=== PATIENT | male | born 1965 | race Caucasian/White ===

== ENCOUNTER 2019-12-07 16:20 | Inpatient (IN) | payer OTHER ==
[~2019-12-07] VITALS: Ht 180.3 cm; Wt 96.8 kg
[~2019-12-07 16:20] MED LIST: IBUPROFEN 200200 M1 PO; NORCO 5-325 TA1 EACH PO; PENICILLIN VK500 MG PO; TYLENOL325 MG PO
[2019-12-07 16:21] VITALS: BP 131/91
[2019-12-07 16:59] LABS: URINE BILIRUBIN 3+ (Negative); URINE BLOOD NEGATIVE (Negative); URINE CLARITY CLEAR; URINE COLOR OTHER; URINE GLUCOSE-RANDOM* TRACE (Negative); URINE KETONES TRACE (Negative); URINE LEUKOCYTES-REFLEX TRACE (Negative); URINE PROTEIN (DIPSTICK) 1+ (Negative); URINE SPECIFIC GRAVITY >= 1.030 (1.005-1.035)
[2019-12-07 17:01] LABS: AMP/METHAMP Negative (Negative); BARBITURATES Negative (Negative); BENZODIAZEPINES Negative (Negative); COCAINE Negative (Negative); METHADONE Negative (Negative); OPIATES Negative (Negative); PCP Negative (Negative)
[2019-12-07 17:06] LABS: URINE NITRITE-REFLEX POSITIVE (Negative)
[2019-12-07 17:07] LABS: ICTOTEST (BILI CONFIRMATORY) Positive (Negative)
[2019-12-07 17:09] LABS: MUCUS 4-6 Moderate strn/LPF (None Seen); SQUAMOUS 0-3 Few /LPF (0-3)
[2019-12-07 17:10] LABS: BACTERIA-REFLEX 1-9 Few /HPF (None Seen); CRYSTALS None Seen /LPF (None Seen); URINE RBC 0-2 Rare /HPF (0-2); URINE WBC-REFLEX 0-5 Rare /HPF (0-5)
[2019-12-07 17:11] LABS: HYALINE CASTS 0-3 Few /LPF (None Seen)
[2019-12-07 17:20] LABS: HEMATOCRIT 36.9 % (42.0-52.0); HEMOGLOBIN 12.7 gm/dL (14.0-18.0); MCH 29.7 pg (26.0-34.0); MCHC 34.3 g/dL (28.0-37.0); MCV 86.5 fL (80.0-100.0); PLATELET COUNT 311 thou/uL (150-400); RBC 4.27 mil/uL (4.50-6.00); RDW 16.1 % (10.5-14.5); WBC 5.8 thou/uL (4.0-11.0)
[2019-12-07 17:26] LABS: CALCIUM 8.8 mg/dL (8.5-10.1); CREATININE 0.9 mg/dL (0.7-1.3); POTASSIUM 3.3 mmol/L (3.5-5.1)
[2019-12-07 17:27] LABS: INR 1.6
[2019-12-07 17:32] LABS: ALBUMIN 3.1 g/dL (3.4-5.0); TOTAL PROTEIN 6.8 g/dL (6.4-8.2)
[2019-12-07 18:40] LABS: ABSOLUTE NEUTROPHILS 4.6 thou/uL (1.4-8.2); ANISOCYTOSIS 1+
[2019-12-07 20:06] VITALS: BP 129/82
--- NOTE | 2019-12-07 20:07 | NUR ---
FIRST ATTEMPT AT REPORT CALLED. STATES NURSE IS IN A ROOM SHE WILL CALL BACK IN A FEW MINS
--- NOTE | 2019-12-07 20:23 | NUR ---
SECOND ATTEMPT AT REPORT MADE. FLOOR NURSE TO CALL BACK.
[2019-12-07 20:48] VITALS: BP 129/82
[2019-12-07 21:26] VITALS: BP 132/87
[2019-12-07] MEDS ORDERED: BENADRYL ANTI-I85 GM TOP (22:14)
[2019-12-07 22:26] LABS: CHOLESTEROL 192 mg/dL (<200); HDL CHOLESTEROL 5 mg/dL (>40); LDL CHOLESTEROL 124 mg/dL (<100); TC:HDL 38.4 Ratio (Not establshd); TRIGLYCERIDE 316 mg/dL (<150); VLDL 63 mg/dL (<40)
[2019-12-07 22:34] LABS: SERUM ASSESSMENT Clear
--- NOTE | 2019-12-08 05:09 | NUR ---
PT ARRIVED TO UNIT APPROXIMATELY AT 2100. PT ORIENTED TO ROOM, ADMISSION PACKET PROVIDED. PT AOX4. PT DENIES PAIN AND SOB. PT REPORTS DIFFICULTY SLEEPING. ONCALL PEDIATRIC GENETICIST NOTIFIED, EMAR UPDATED, MELATONIN GIVEN. PT ASSESSED WITH PRURITIS, RASH LIKE PATTERNS THROUGHOUT BODY MOSTLY SEEN ON BLE. PT REPORTS USING BARRIER CREAM AND BENADRYL TO RELIEVE ITCHING. PT RECEIVING PRN PO BENADRYL Q6HR, BARRIER CREAM PROVIDED. PT NOTED TO HAVE BROWN, KIRSTEN URINE. PT AMBULATES WITH STANDBY ASSIST, GAIT STEADY, URINAL PROVIDED. PT TOLERATING PO INTAKE OF FLUIDS AND HEART HEALTHY DIET.PT DENIES N/V. ENCOURAGED PT TO NOTIFY STAFF FOR ALL NEEDS. CALL LIGHT WITHIN REACH, BED IN LOWEST POSITION, FREQUENT MONITORING CONTINUES.
[2019-12-08 05:10] VITALS: BP 130/82
[2019-12-08 05:24] LABS: ALBUMIN 2.8 g/dL (3.4-5.0); CALCIUM 8.4 mg/dL (8.5-10.1); CREATININE 0.6 mg/dL (0.7-1.3); MAGNESIUM 1.8 mg/dL (1.8-2.4); POTASSIUM 3.6 mmol/L (3.5-5.1); TOTAL PROTEIN 6.3 g/dL (6.4-8.2)
--- NOTE | 2019-12-08 08:25 | EKG ---
[facility] [place] [address] [place] [address] ELECTROCARDIOGRAM REPORT Name: MAINOR CASTILLO Room #: 441- ADM IN M.R.#: [id number] Admission: 12/07/19 Attend Phys: Hugo Carrera MD Discharge: Date of : 67 Report #: [id number] THIS REPORT FOR: cc: FAM - No family physician/PCP FAM - No family physician/PCP Gary Richmond MD [facility] THIS REPORT FOR: //name// [facility] ED Test Date: 2019-12-07 Test Time: 17:08:50 Pat Name: MAINOR CASTILLO Department: Room: [facility] Gender: M Opener Verifier Packer Customs: esheets : 1965 Requested By: Jennyfer Coyle Order Number: [id number] MD: Gary Richmond Measurements Intervals [place] Rate: 65 P: 36 UT: 198 QRS: 5 QRSD: 101 T: 23 QT: 380 QTc: 396 Interpretive Statements Sinus rhythm Normal tracing No previous ECG available for comparison Electronically Signed On 12-08-2019 8:25:33 CDT by Gary Richmond [email or web address] <ELECTRONICALLY SIGNED> By: Gary Richmond MD, FACC 12/08/19 0825 1708 1708 Gary Richmond MD, [facility] /EPI
[2019-12-08 08:36] VITALS: BP 121/78
--- NOTE | 2019-12-08 11:39 | NUR ---
Assumed care of pt at 0700. Pt a&ox4. Denies pain. Up ad em. IVF and IV antibiotics infusing. GI and Onc consulted. Covid test sent to lab. Call light within reach. Will continue to monitor.
--- NOTE | 2019-12-08 12:09 | NUR ---
ASSESSMENT: CM REVIEWED CHART AND MET WITH PATIENT. PT IS ALERT AND ORIENTED X4. PT WAS ADMITTED DUE TO PANCREATIC MASS. GI AND ONC CONSULTED. PT REPORTS LIVING IN A HOME WITH HIS SIGNIFICANT OTHER. PT REPORTS HAVING NO STEPS TO ENTER AND A FEW STEPS ONCE INSIDE. PT REPORTS BEING FULLY INDEPENDENT WITH ADLS AND AMBULATION. PT REPORTS NO DME OR THE NEED FOR IT. PT STATES THAT HE HAS NO INSURANCE NOR PCP. CM PROVIDED PATIENT WITH A SAFETY NET PACKET/ HEALTH RESOURCE GUIDE. GI IS TO DO POSSIBLE ERCP. CM WILL CONTINUE TO FOLLOW TO ASSIST NEEDED.
[2019-12-08 16:30] VITALS: BP 124/74
[2019-12-08 19:25] VITALS: BP 126/70
[2019-12-08 22:06] LABS: CA 125 19.6 U/mL (Not Estab.)
[2019-12-08 23:19] VITALS: BP 126/70
[2019-12-09 02:06] LABS: GLYCOHEMOGLOBIN (HGB A1C) 5.7 % (4.8-5.6)
[2019-12-09 03:31] VITALS: BP 122/73
--- NOTE | 2019-12-09 06:21 | NUR ---
PT AOX4. PT DENIES PAIN AND SOB. PT REMAINS ON ROOM AIR. PT REPORTS ITCHING ALL OVER. PT RECEIVING PRN PO BENADRYL Q6HR AND PRN PO HYDROXYZINE Q6HR. PT NPO AT MIDNIGHT. PT AMBULATES INDEPENDENTLY IN ROOM AND TO BATHROOM. PT AWAKENED WITH ITCHING. ONCALL MODERN DANCER NOTIFIED, RECEIVED ORDERS FOR ONETIME IV BENADRYL, IV BENADRYL GIVEN ONETIME. P ENCOURAGED TO NOTIFY STAFF FOR ALL NEEDS. CALL LIGHT WITHIN REACH, BED IN LOWEST POSITION, FREQUENT MONITORING WILL CONTINUE.
--- NOTE | 2019-12-09 07:11 | HC ---
[facility] [address] [place] [address] CONSULTATION Name: MAINOR CASTILLO Room #: 441-P ADM IN M.R.#: [id number] Admission: 12/07/19 Attend Phys: Hugo Carrera MD Discharge: Date of : 67 Report #: [id number] THIS REPORT FOR: cc: [facility] - No family physician/PCP [facility] - No family physician/PCP Nathan Christina MD ~ CC: Berny Bal MD [facility] physician/PCP Hugo Carrera MD DATE OF SERVICE: 12/08/2019 REASON FOR CONSULTATION: Pancreatic mass and biliary obstruction. HISTORY OF PRESENT ILLNESS: The patient is a 54-year-old gentleman from the [place] area, who works at [employer] for the last year, who has about a 7-day history of itching, yellow eyes, dark urine, light stool, 10-pound weight loss. No fevers, no chills. No swallowing difficulty. No blood in his urine or stool. He does report that periodically, maybe 2 or 3 times per year, he will have bad abdominal pain. He gets sweating and he has dry heaves, then resolves, unsure if it is related. PAST MEDICAL HISTORY: Notable for a pinched nerve, lumbar bulging disk. PAST SURGICAL HISTORY: None. 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 Maybe smokes 3 joints a day. Minimal alcohol. No regular tobacco. FAMILY HISTORY: Mother and father, no specific issues. I think he said he had a brother who has diabetes, one that is alive without health issues, and a 12-year-old daughter. He has a girlfriend, I think he said or for 7 years. CAT scan done here raises the question of a large choledochal cyst as well as a pancreatic body mass and also the biliary ductal dilatation, both intrahepatic and extrahepatic. They talked about a large multiloculated cystic mass posterior to the common bile duct, extending superiorly along the upper margin of the pancreas. They thought this either could be a cystic pancreatic mass or a large choledochal cyst. Then, the body in the mass of the pancreas measures 2.5 x 2.5 cm. No mention of any enlarged lymph nodes. Lower parts of the chest not evaluated. PHYSICAL EXAMINATION: [facility] [address] [place] [address] CONSULTATION Name: MAINOR CASTILLO Room #: 441-P [facility] IN .R.#: [id number] Admission: 12/07/19 Attend Phys: Hugo Carrera MD Discharge: Date of : 67 Report #: [id number] GENERAL: The patient appears his stated age. He is alert and oriented x 3. Slightly jaundiced. VITAL SIGNS: Height is 5 feet 11 inches, which is 180.3 cm. Weight is 213.3 pounds or 96.8 kilograms. He is afebrile. Blood pressure is 130/82, O2 sat 97%, respirations 18, pulse 56, 97.9. MOOD: He is somewhat quiet and reserved, but is conversant. NEUROLOGIC: Speech and thought pattern appear to be normal. Moving all extremities. Face is symmetrical. LUNGS: Clear, without stridor, rales, rhonchi with symmetric, unlabored respiration. HEART: Regular rate. LYMPHATICS: No enlarged lymph nodes in the supraclavicular, cervical, axillary or inguinal epidural region. ABDOMEN: Slightly obese, nontender. No masses. EXTREMITIES: Without clubbing or cyanosis. He does have a few areas of excoriation from the itching as he describes it. LABORATORY DATA: Here notable for BUN of 9, creatinine 0.6, AST 59, lipase 831. Total bilirubin 12, calcium and magnesium are normal. Alkaline phosphatase 255, elevated; ALT 82, elevated; albumin 2.8. INR 1.6, slightly elevated. Urine drug screen negative. White count is 5.8, hemoglobin 12.7, MCV 86.5, platelets 311. Differential normal. UA, as you might expect bilirubin in it, trace glucose, trace ketones, positive nitrite. MEDICATIONS: At this time currently include famotidine 20 b.i.d. IV, melatonin 5 at bedtime, hydrocodone p.r.n., diphenhydramine p.r.n., Zofran p.r.n., and IV fluids. ASSESSMENT AND PLAN: Pancreatic mass and biliary ductal obstruction. Discussed with the patient that he has a pancreatic mass as well as a cystic mass, that we would probably see if GI wishes to do an ERCP to see if they could drain this internally. If that is unsuccessful, they may consider percutaneous transhepatic cholangiogram with bile duct drainage, also described ____ this way or not. We also may need to consider endoscopic ultrasound to assess the lymph nodes and blood vessel involvement of this mass. He will also need additional staging with either a CT chest or a PET scan, also due to his lack of insurance, [place] Medicaid pending ____ to determine which health system he works with. <ELECTRONICALLY SIGNED> By: Nathan Christina MD 12/09/19 0711 0738 8 Nathan Christina MD /mark
[2019-12-09 07:30] VITALS: BP 141/72
--- NOTE | 2019-12-09 10:52 | NUR ---
Assumed care of pt at 0700. Pt a&ox4. ERCP scheduled. Consent signed in the chart. IVF and IV antibiotics infusing. Covid patricia. Up ad em. Family at bedside. Will continue to monitor.
--- NOTE | 2019-12-09 15:20 | NUR ---
ON-GOING ASSESSMENT: CM REVIEWED CHART. PT IS TO HAVE ERCP TODAY. CM WILL CONTINUE TO FOLLOW TO ASSIST NEEDED. PT HAS NO INSURANCE BUT WAS PROVIDED WITH A HEALTH RESOURCE PACKET. CM WILL CONTINUE TO FOLLOW.
[2019-12-09 16:50] VITALS: BP 132/75
[2019-12-09 17:20] VITALS: BP 142/75
[2019-12-09 17:30] VITALS: BP 139/82
--- NOTE | 2019-12-09 20:08 | NUR ---
Assumed care at approximately 1500 from day shift nurse. S/P ERCP, transferred to bed safely. A+OX4. On room air. Vital signs stable. On regular diet for dinner time; tolerated well; no nausea, no vomiting and no abdominal pain noted. Continent of bowel and bladder, using urinal and able to go to the toilet independently. Assisted in ADLS. Pt's skin jaundiced. With NS at 75cc/hr, infusing well at L AC; on IV antibiotics- given as prescribed. With relative at bedside this PM, update given. No complains of chest pain, crushing sensation, heaviness and generalized pain. Urine noted to be wei in color- night RN informed. Possible discharge tomorrow. To continue monitoring patient.
[2019-12-09 21:40] VITALS: BP 117/69
--- NOTE | 2019-12-10 02:25 | NUR ---
ASSESSED AT START OF SHIFT. PT A&OX4 DENIES PAIN, N/V. IV INTACT WITH IVF. PT JAUNDICED. UP AD NOLBERTO TO THE BATHROOM. EVENING SNACKS GIVEN AND PT SAIDA IT WELL. HS MEDS AND MELATONIN GIVEN FOR SLEEP. CALL LIGHT IN REACH WILL CONT WITH POC TILL EOS.
[2019-12-10 03:37] VITALS: BP 102/64
[2019-12-10 06:01] LABS: HEMATOCRIT 34.5 % (42.0-52.0); HEMOGLOBIN 11.9 gm/dL (14.0-18.0); MCH 29.7 pg (26.0-34.0); MCHC 34.5 g/dL (28.0-37.0); MCV 86.2 fL (80.0-100.0); RDW 17.1 % (10.5-14.5); WBC 6.2 thou/uL (4.0-11.0)
[2019-12-10 06:40] LABS: ALBUMIN 2.4 g/dL (3.4-5.0); DIRECT BILIRUBIN 7.7 mg/dL (<0.1-0.2); TOTAL BILIRUBIN 9.6 mg/dL (0.2-1.0); TOTAL PROTEIN 5.8 g/dL (6.4-8.2)
[2019-12-10 09:37] VITALS: BP 113/65
[2019-12-10 12:55] VITALS: BP 113/65
--- NOTE | 2019-12-10 12:59 | NUR ---
ON-GOING ASSESSMENT: CM REVIEWED CHART AND SPOKE WITH PATIENT WELL ATTENDING AND GI. GI REPORTS THAT THEY WOULD LIKE PATIENT TO FOLLOW UP AT [facility] DUE TO CURRENTLY NOT HAVING INSURANCE FOR OUTPATIENT GI SERVICES. ANGE SPOKE WITH [facility] WHO REPORTS THEY HAVE SEEN PATIENT AND HE QUALIFIES FOR MEDICAID WELL SSDI. THEY ARE ASSISTING PT IN SUBMITTING THE APPLICATION. ANGE REACHED OUT TO [facility] [place]: [phone] AND THEY REPORTS THAT THEY CAN ASSIST PTS WITH NO INSURANCE/MEDICAID/OR MEDICAID PENDING AND PREFER WE FAX REFERRAL TO THEIR FAX:[phone]. ANGE SPOKE WITH PT AND HE IS AGREEABLE FOR CM TO SEND REFERRAL TO OUTPATIENT GI AT [place]. HE HOWEVER REPORTS HE WOULD LIKE TO GO TO IF THATS AN OPTION. CM REACHED OUT TO AND THEY REPORT THAT THEY DO NOT ACCEPT [place] MEDICAID AND THAT THEY ONLY ACCEPT [place] MEDICAID AND [place] MEDICAID IS TREATED PATIENT PAY. THEY STATED PT COULD SPEAK WITH FINANCIAL COUNSELOR TO SEE IF THEY WOULD BE ABLE TO ASSIST WITH ANYTHING. ANGE PROVIDED PATIENT WITH FINANCIAL COUNSELOR CONTACT [phone]. PT REPORTS NO FURTHER QUESTIONS FROM ANGE.
--- NOTE | 2019-12-10 14:06 | P ---
[facility] [address] [address] [place] [address] PROCEDURE REPORT Name: MAINOR CASTILLO Room #: 441-P ADM IN M.R.#: [id number] Admission: 12/07/19 Attend Phys: Hugo Carrera MD Discharge: Date of : 67 Report #: [id number] THIS REPORT FOR: cc: [facility] - No family physician/PCP [facility] - No family physician/PCP Berny Bal MD ~ CC: [facility] physician/PCP Hugo Christina MD DATE OF SERVICE: 12/09/2019 PROCEDURE PERFORMED: ERCP with biliary stent placement. HISTORY OF PRESENT ILLNESS: The patient is a 54-year-old male with recent jaundice and weight loss. Denies any abdominal pain. Admit bilirubin was 13.0, yesterday was 12.0. AST 59, lipase 831, alkaline phosphatase 255 and ALT of 82. WBC is normal at 5.8, hemoglobin 12.7. The patient underwent a CT scan of the abdomen and pelvis on 12/07/2019 which shows marked intrahepatic and extrahepatic bile duct dilation. There was a large multiloculated cystic mass posterior to the common bile duct, extending superiorly along the upper margin of the pancreas. Differential considerations include a cystic pancreatic mass or large choledocho cyst, ill-defined infiltrating mass or low density lesion in the anterior body of the pancreas measuring 2.5 x 2.5 cm concerning for pancreatic adenocarcinoma. There was also pancreatic ductal dilation. Gallbladder is contracted. Plan is for ERCP. DESCRIPTION OF PROCEDURE: The risks and benefits of the procedure were explained to the patient, those risks including but not limited to bleeding, perforation and the risk of sedation as well as potential risk for posterior superior pancreatitis. The patient understood these risks and gave informed consent. The procedure was performed under general anesthesia in the operating room. The patient was started on scheduled IV Zosyn yesterday, indomethacin rectal suppository 15 mg was given prior to the procedure. Next, using a standard Olympus side-viewing ERCP scope, the scope was placed in the patient's mouth and advanced under direct vision through the esophagus, stomach and into the second portion of the duodenum, at which point, the major papilla was identified and normal in appearance. Next, using a [employer] 0.025 dome-tipped sphincterotome catheter, the common bile duct was cannulated. A cholangiogram was obtained showing a very distal portion of the common bile duct mildly dilated approximately 10-mm in diameter. This extended for approximately 2 cm, at which point, there was an abrupt change with a very tight stricture noted for approximately 3 or 4 cm with only a trickle of dye passing through this area. Eventually, the dye did pass up into the more mid portion of the common bile duct and upper common bile duct, which was significantly dilated to [facility] [address] [place] [address] PROCEDURE REPORT Name: NICHELLEBUSTERMAINOR Hakeem Room #: 441-P [facility] IN ..#: [id number] Admission: 12/07/19 Attend Phys: Hugo Carrera MD Discharge: Date of : 67 Report #: [id number] about 1.5-2 cm in diameter. At this point, I was able to advance a guidewire with some resistance through the strictured area. The guidewire was left in place as the sphincterotome was removed. Next, a 7-Belizean x 9 cm straight biliary stent was then passed over the guidewire with some mild resistance. The stent appears to be in good position, well above the stricture. There was evidence of IV contrast drainage from the stent placed after placement. At this point, the sphincterotome was withdrawn. The scope was withdrawn and the procedure terminated. The patient tolerated the procedure well. 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 Straight 7-Belizean x 9 cm biliary stent was placed today as described above. RECOMMENDATIONS: 1. Observe the patient post-procedure. 2. Would recommend proceeding with further evaluation including endoscopic ultrasound in the near future. Thank you for allowing me to participate in his care. <ELECTRONICALLY SIGNED> By: Berny Bal MD 12/10/19 1406 1518 1622 Berny Bal MD /nt
--- NOTE | 2019-12-10 16:42 | NUR ---
PT ASSESSED AT START OF SHIFT. DENIES PAIN. EATING AND DRINKING WELL. GI IN AND PT WANTING TO GO HOME TODAY IF POSSIBLE. FISH CONSERVATIONIST WORKING ON CARE POST DISCHARGE.
[2019-12-10] MEDS ORDERED: HYDROXYZINE HCL25 M2 PO (17:19)
[2019-12-10] MEDS ORDERED: MELATONIN5 M1 PO (17:19)
[2019-12-10 17:24] VITALS: BP 117/78
[2019-12-10 18:19] VITALS: BP 113/65
[2019-12-11 16:06] LABS: CEA 2.3 ng/mL (0.0-4.7)
== END 2019-12-10 16:12 | disposition home health service (06) | DRG 438 ==
LOC: ER 16:20 → EDBD 16:20 → EROBS 19:20 → 4S 20:56
PROVIDERS: Nurse Practitioner; Nurse Practitioner Family; Physician Assistant; Specialist; ADMIT Internal Medicine; ATTEND Internal Medicine
PROC: 0F798DZ Dilation of Common Bile Duct with Intraluminal Device, Via Natural or Artificial Opening Endoscopic (ICD-10-PCS; principal; 2019-12-09)
DX: K85.90 Acute pancreatitis without necrosis or infection, unspecified (principal); K83.1 Obstruction of bile duct; E46 Unspecified protein-calorie malnutrition; L29.9 Pruritus, unspecified; H15.89 Other disorders of sclera; R63.4 Abnormal weight loss; E87.6 Hypokalemia; M51.36 Other intervertebral disc degeneration, lumbar region; D64.9 Anemia, unspecified; Z20.828 Contact with and (suspected) exposure to other viral communicable diseases; Z80.3 Family history of malignant neoplasm of breast; Z83.3 Family history of diabetes mellitus; Z68.29 Body mass index [BMI] 29.0-29.9, adult; Z82.49 Family history of ischemic heart disease and other diseases of the circulatory system; Z79.899 Other long term (current) drug therapy
CPT/HCPCS: 10195; 62110; 62900; 70005